=== PATIENT | female | born 1930 | race Caucasian/White ===

== ENCOUNTER 2018-02-26 20:53 | Observation (INO) ==
--- NOTE | 2018-02-26 21:28 | ED ---
HPI General Chief Complaint: Respiratory Symptoms Stated Complaint: Cough x2days Source: patient Mode of arrival: ambulatory Limitations: no limitations History of Present Illness The patient is a 87-year-old female who presents emergency department for shortness of breath. The patient notes a 2 day history of shortness of breath, progressing, worse with lying supine. The patient states her shortness of breath is also associated with a dry nonproductive cough. The patient denies any chest pain, nausea, vomiting, or abdominal pain. She denies any fever. The patient does have a remote history of tobacco use, COPD, and for previous episodes of pneumonia with similar symptoms. The patient also has a previous history of DVT that occurred approximately 3-4 years ago and was treated with warfarin for 6 months. The patient denies any acute swelling of the lower extremities and denies any history of congestive heart failure. Symptoms are moderate, there are currently no alleviating factors. MD Complaint: shortness of breath Onset (ago): day(s) Context: other (Lying supine exacerbates her symptoms) Severity: moderate Consistency/Duration: constant Relieving factors: nothing Exacerbating factors: lying flat Known history of: COPD and DVT Associated symptoms: cough and orthopnea Treatment prior to arrival: none Related Data Home oxygen amount: none Home Medications Medication Instructions Recorded Confirmed enalapril maleate 20 mg PO BID 01/28/18 02/26/18 folic acid 1 mg PO DAILY 01/28/18 02/26/18 methotrexate 10 mg/m2 PO QWEEK 01/28/18 02/03/18 lidocaine 1 patch TOPICAL DAILY PRN 02/26/18 02/26/18 Allergies Allergy/AdvReac Type Severity Reaction Status Date / Time penicillin G Allergy Severe HIVES Verified 01/28/18 21:11 aspirin AdvReac Severe Nausea/Vomi Verified 01/28/18 21:11 ting Review of Systems ROS: all other systems reviewed are negative Constitutional Denies fever(s) Cardiovascular Denies chest pain, Denies rapid heart rate, Denies pedal edema, Denies leg edema , Reports dyspnea, Denies dyspnea on exertion and Reports orthopnea Respiratory Reports cough and Reports dyspnea Gastrointestinal Denies abdominal pain, Denies nausea and Denies vomiting Musculoskeletal Reports arthralgias PMFSH Medical History Medical History Arthritis (Acute) COPD (chronic obstructive pulmonary disease) (Acute) DVT (deep venous thrombosis) (Acute) H/O: hysterectomy (Acute) HTN (hypertension) (Acute) Shingles (Acute) Surgical History Surgical History History of appendectomy (Acute) History of lumbar fusion (Acute) Social History Social History Substance History: No History of Abuse Second Hand Smoke Exposure: No Smoking Status: Former smoker Tobacco Type: Cigarettes How Often Do You Have a Drink Containing Alcohol: Never Recent Travel in [facility] within the Last 8 Weeks: No Exam Narrative Exam Narrative: GENERAL: Awake, alert, pleasant 87-year-old female appears her stated age and appears in mild respiratory distress. SKIN: Focused skin assessment warm/dry. Diminishing shingles rash noted over the left lateral abdomen. HEAD: Atraumatic. Normocephalic. EYES: No injection or drainage per ENT: No nasal bleeding or discharge. Mucous membranes pink and moist. NECK: Trachea midline. No JVD. CARDIOVASCULAR: Regular, tachycardic with a heart rate of 110. RESPIRATORY: Tachypnea, respiratory rate of 30. Diminished breath sounds left mid lung area with a few scattered crackles. GASTROINTESTINAL: Abdomen soft, non-tender, nondistended. No rebound tenderness. MUSCULOSKELETAL: No obvious deformities. No clubbing. No cyanosis. No edema. Negative Homans sign bilaterally. NEUROLOGICAL: Awake and alert. No obvious cranial nerve deficits. Motor grossly within normal limits. Normal speech. PSYCHIATRIC: Appropriate mood and affect; insight and judgment normal. Course Reevaluation(s) Reevaluation #1: The patient was reevaluated at 11:30 PM, still short of breath with a heart rate of 110 respiratory rate of 22 and O2 sat of 93%. Therefore, the patient will be 23 hour observation for COPD exacerbation. I discussed the patient with Dr. Brock who agrees a 23 hour observation. Time: 23:30 Consultations Consultation #1: The on-call medical service was paged for admission, I discussed the patient with Dr. Brock who agrees with 23 hour observation. Time: 23:42 Initial Documented Vital Signs Temperature 99.6 F 02/26/18 21:03 Pulse Rate 110 H 02/26/18 21:03 Respiratory Rate 20 02/26/18 21:03 Blood Pressure 172/88 H 02/26/18 21:03 Pulse Oximetry 97 02/26/18 21:03 Last Documented Vital Signs Temperature 99.6 F 02/26/18 21:03 Pulse Rate 106 H 02/26/18 22:02 Respiratory Rate 30 H 02/26/18 21:40 Blood Pressure 172/88 H 02/26/18 21:03 Pulse Oximetry 97 02/26/18 21:52 Medical Decision Making MDM Narrative Medical decision making narrative: IV was established, labs were drawn and sent , and the patient was placed on cardiac telemetry monitoring and continuous pulse oximetry monitoring. EKG was ordered and interpreted. Chest x-ray was obtained. The patient was administered 1 DuoNeb. BNP was sent to lab. Chest x -ray was unremarkable, therefore, CT pulmonary angiogram was ordered as patient does have history of pulmonary embolism and had a respiratory rate of 30 and pulse of 106. Troponin is unremarkable. BNP is negative. The patient was reassessed after steroids and duo nebs, still symptomatic, but respiratory rate improved to 22. Patient does not have a nebulizer at home, still symptomatic and still tachycardic with a heart rate of 110. Therefore, the patient will be a 23 hour observation to the on-call medical service. The patient and family are comfortable with this plan of care and disposition. Medical Screen Exam Complete: Yes Emergency Medical Condition: Yes Lab Data Lab results reviewed: Yes I reviewed the patient's lab results. Result diagrams: 02/26/18 21:45 02/26/18 21:45 Lab Results 02/26/18 02/26/18 02/26/18 Range/Units 21:45 21:45 21:45 CBC w Diff Auto diff final WBC 3.1 L (4.0-11.0) th/mm3 RBC 4.63 (4.00-5.30) mil/mm3 Hgb 14.1 (11.6-15.3) gm/dL Hct 42.2 (35.0-46.0) % MCV 91.3 (80.0-100.0) fL MCH 30.4 (27.0-34.0) pg MCHC 33.3 (32.0-36.0) % RDW 15.5 (11.6-17.2) % Plt Count 125 L (150-450) th/mm3 MPV 8.1 (7.0-11.0) fL Neut % (Auto) 38.6 (16.0-70.0) % Lymph % (Auto) 40.2 (9.0-44.0) % Pickens % (Auto) 19.5 H (0.0-8.0) % Eos % (Auto) 1.0 (0.0-4.0) % Baso % (Auto) 0.7 (0.0-2.0) % Neut # (Auto) 1.2 L (1.8-7.7) th/mm3 Lymph # (Auto) 1.3 (1.0-4.8) th/mm3 Pickens # (Auto) 0.6 (0.0-0.9) th/mm3 Eos # (Auto) 0.0 (0.0-0.4) th/mm3 Baso # (Auto) 0.0 (0.0-0.2) th/mm3 WBC Differential . Differential Comment . PT 11.0 (9.8-11.6) sec INR 1.1 Ratio APTT 25.1 (24.3-30.1) sec Sodium 134 L (136-145) meq/L Potassium 4.4 (3.5-5.1) meq/L Chloride 100 (98-107) meq/L Carbon Dioxide 28.0 (21.0-32.0) meq/L Anion Gap 6 (5-15) meq/L BUN 13 (7-18) mg/dL Creatinine 0.99 (0.50-1.00) mg/dL Estimated GFR 53 L (>89) mL/min Random Glucose 112 H (74-106) mg/dL Calcium 8.8 (8.5-10.1) mg/dL Magnesium 2.1 (1.5-2.5) mg/dL Total Bilirubin 1.1 H (0.2-1.0) mg/dL AST 30 (15-37) U/L ALT 24 (10-53) U/L Alkaline Phosphatase 70 (45-117) U/L Troponin I Less than 0.02 L (0.02-0.05) ng/mL B-Natriuretic Peptide (0-100) pg/mL Total Protein 7.8 (6.4-8.2) g/dL Albumin 3.4 (3.4-5.0) g/dL Urine Color (Yellw/Straw) Urine Clarity (Clear) Urine pH (5.0-8.5) Ur Specific Franklin (1.002-1.035) Urine Protein (Neg-Trace) mg/dL Urine Glucose (UA) (Negative) mg/dL Urine Ketones (Negative) mg/dL Urine Occult Blood (Negative) Urine Nitrate (Negative) Urine Bilirubin (Negative) Urine Urobilinogen (Less than 2) mg/dL Ur Leukocyte Esterase (Negative) Urine RBC (0-3) /hpf Urine WBC (0-5) /hpf Ur Squamous Epith Cells (0-5) /hpf Micro UA Comment Urine Culture Comments 02/26/18 02/26/18 Range/Units 21:45 22:59 CBC w Diff WBC (4.0-11.0) th/mm3 RBC (4.00-5.30) mil/mm3 Hgb (11.6-15.3) gm/dL Hct (35.0-46.0) % MCV (80.0-100.0) fL MCH (27.0-34.0) pg MCHC (32.0-36.0) % RDW (11.6-17.2) % Plt Count (150-450) th/mm3 MPV (7.0-11.0) fL Neut % (Auto) (16.0-70.0) % Lymph % (Auto) (9.0-44.0) % Pickens % (Auto) (0.0-8.0) % Eos % (Auto) (0.0-4.0) % Baso % (Auto) (0.0-2.0) % Neut # (Auto) (1.8-7.7) th/mm3 Lymph # (Auto) (1.0-4.8) th/mm3 Pickens # (Auto) (0.0-0.9) th/mm3 Eos # (Auto) (0.0-0.4) th/mm3 Baso # (Auto) (0.0-0.2) th/mm3 WBC Differential Differential Comment PT (9.8-11.6) sec INR Ratio APTT (24.3-30.1) sec Sodium (136-145) meq/L Potassium (3.5-5.1) meq/L Chloride (98-107) meq/L Carbon Dioxide (21.0-32.0) meq/L Anion Gap (5-15) meq/L BUN (7-18) mg/dL Creatinine (0.50-1.00) mg/dL Estimated GFR (>89) mL/min Random Glucose (74-106) mg/dL Calcium (8.5-10.1) mg/dL Magnesium (1.5-2.5) mg/dL Total Bilirubin (0.2-1.0) mg/dL AST (15-37) U/L ALT (10-53) U/L Alkaline Phosphatase (45-117) U/L Troponin I (0.02-0.05) ng/mL B-Natriuretic Peptide 81 (0-100) pg/mL Total Protein (6.4-8.2) g/dL Albumin (3.4-5.0) g/dL Urine Color Yellow (Yellw/Straw) Urine Clarity Slightly cloudy (Clear) Urine pH 7.0 (5.0-8.5) Ur Specific Franklin 1.020 (1.002-1.035) Urine Protein 30 H (Neg-Trace) mg/dL Urine Glucose (UA) Negative (Negative) mg/dL Urine Ketones Negative (Negative) mg/dL Urine Occult Blood Large H (Negative) Urine Nitrate Negative (Negative) Urine Bilirubin Negative (Negative) Urine Urobilinogen 0.2 (Less than 2) mg/dL Ur Leukocyte Esterase Negative (Negative) Urine RBC 15-50 H (0-3) /hpf Urine WBC 0-5 (0-5) /hpf Ur Squamous Epith Cells 0-5 (0-5) /hpf Micro UA Comment Culture not ind Urine Culture Comments Culture not ind Imaging Data Attestation: I personally reviewed and interpreted this imaging study as follows : My impression: Chest x-ray is unremarkable. Radiologist's impression: Chest X-Ray 02/26/18 21:20 CONCLUSION: No acute cardiopulmonary disease. There is no evidence of pneumonia. Chest CTA 02/26/18 21:42 CONCLUSION: 1. No evidence for pulmonary embolism. 2. Scattered groundglass nodules. Follow-up CT chest in 3 months recommended for stability. 3. Coronary artery calcifications. ECG Data EKG Prior to Arrival: No Attestation: I personally reviewed and interpreted this ECG as follows: Interpretation: EKG reveals sinus tachycardia with a heart rate of 102. Q-wave noted in lead II, III, and aVF. QTc 397 ms. Discharge Plan Discharge Disposition Patient Disposition: 30 Still Patient Discharge Condition Condition: Stable Discharge Details Diagnosis: COPD exacerbation, Acute dyspnea Physicians Team ED Provider: Abdon Chapa Primary Care Provider: Leila Ferrer Rxs /Orders / Referrals /Forms Prescriptions: No Action enalapril maleate 20 mg Tablet 20 mg PO BID RF: 0 folic acid 1 mg Tablet 1 mg PO DAILY RF: 0 methotrexate 2.5 mg/mL Solution 10 mg/m2 PO QWEEK RF: 0 lidocaine 5 % adhesive patch,medicated 1 patch TOPICAL DAILY PRN (Reason: Pain) RF: 0 Status ED Status: Pending Admission
--- NOTE | 2018-02-26 21:43 | XR ---
EXAM DATE: 02/26/2018 9:38 PM EDT AGE/SEX: 87 years / Female INDICATIONS: Cough. CLINICAL DATA: This is the patient's initial encounter. Patient reports that signs and symptoms have been present for 1 day and indicates a pain score of 0/10. MEDICAL/SURGICAL HISTORY: Non-responsive. Non-responsive. COMPARISON: [facility], CHEST SINGLE AP, 11/29/2011. . FINDINGS: A single AP view of the chest demonstrates the lungs to be symmetrically aerated without evidence of mass, infiltrate or effusion. The cardiomediastinal contours are unremarkable. Osseous structures a re intact. Atherosclerotic calcifications are again noted in the aorta. CONCLUSION: No acute cardiopulmonary disease. There is no evidence of pneumonia. Electronically signed by: Rj Nugent MD 02/26/2018 9:42 PM EDT
[2018-02-26 22:10] LABS: Baso % (Auto) 0.7 % (0.0-2.0); Hematocrit 42.2 % (35.0-46.0); Hemoglobin 14.1 gm/dL (11.6-15.3); Lymph # (Auto) 1.3 th/mm3 (1.0-4.8); Lymph % (Auto) 40.2 % (9.0-44.0); Mean Corpuscular HGB Conc 33.3 % (32.0-36.0); Mean Corpuscular Hemoglobin 30.4 pg (27.0-34.0); Mean Corpuscular Volume 91.3 fL (80.0-100.0); Mean Platelet Volume 8.1 fL (7.0-11.0); Mono # (Auto) 0.6 th/mm3 (0.0-0.9); Mono % (Auto) 19.5 % (0.0-8.0); Neut # (Auto) 1.2 th/mm3 (1.8-7.7); Neut % (Auto) 38.6 % (16.0-70.0); Platelet Count 125 th/mm3 (150-450); Red Blood Count 4.63 mil/mm3 (4.00-5.30); Red Cell Distribution Width 15.5 % (11.6-17.2); White Blood Count 3.1 th/mm3 (4.0-11.0)
--- NOTE | 2018-02-26 22:12 | ECG ---
Date Performed: 02/26/2018 Time Performed: 21:28:52 PTAGE: 87 years EKG: SINUS TACHYCARDIA INFERIOR MYOCARDIAL INFARCTION ABNORMAL ECG PREVIOUS TRACING : 02/03/2018 08.25 No significant change from previous tracing noted. DOCTOR: Garth Solis Interpretating Date/Time 02/26/2018 22:10:49
[2018-02-26 22:13] LABS: Chloride 100 meq/L (98-107); Potassium 4.4 meq/L (3.5-5.1); Sodium 134 meq/L (136-145)
[2018-02-26 22:17] LABS: Calcium 8.8 mg/dL (8.5-10.1)
[2018-02-26 22:18] LABS: Albumin 3.4 g/dL (3.4-5.0); Anion Gap 6 meq/L (5-15); Blood Urea Nitrogen 13 mg/dL (7-18); Glucose,Random 112 mg/dL (74-106); Magnesium 2.1 mg/dL (1.5-2.5)
[2018-02-26 22:21] LABS: Alanine Aminotransferase 24 U/L (10-53); Aspartate Aminotransferase 30 U/L (15-37); Glomerular Filtration Rate 53 mL/min (>89)
[2018-02-26 22:22] LABS: Total Protein 7.8 g/dL (6.4-8.2)
[2018-02-26 22:24] LABS: Alkaline Phosphatase 70 U/L (45-117)
[2018-02-26 22:28] LABS: Activated Partial Thrombo Time 25.1 sec (24.3-30.1); INR 1.1 Ratio
[2018-02-26 23:02] LABS: Bilirubin,Urine Negative (Negative); Clarity,Urine Slightly Cloudy (Clear); Color,Urine Yellow (Yellw/Straw); Glucose,Urine (UA) Negative (Negative); Leukocyte Esterase,Urine Negative (Negative); Nitrite,Urine Negative (Negative); Urobilinogen,Urine 0.2 mg/dL (Less than 2)
[2018-02-26 23:15] LABS: Squamous Epithelial Cell,Urine 0-5 /hpf (0-5); WBC,Urine 0-5 /hpf (0-5)
--- NOTE | 2018-02-26 23:34 | CT ---
EXAM DATE: 02/26/2018 11:20 PM EDT AGE/SEX: 87 years / Female INDICATIONS: Shortness of breath past 2 days. CLINICAL DATA: This is the patient's initial encounter. Patient reports that signs and symptoms have been present for 2 days and indicates a pain score of 0/10. MEDICAL/SURGICAL HISTORY: Chronic obstructive pulmonary disease. Deep venous thrombosis. None. RADIATION DOSE: 16.05 CTDI (mGy) COMPARISON: No prior exams available for comparison. TECHNIQUE: Volumetric scanning was performed using a multi-row detector CT scanner during bolus infu lizette of 70 ml Omnipaque 350 (iohexol) nonionic water-soluble contrast as a single exam dose. The chelsi a was post processed with a variety of visualization algorithms including full volume maximum intensi ty projection and sliding thin slab reformation. Using automated exposure control and adjustment of t he mA and/or kV according to patient size, radiation dose was kept as low as reasonably achievable to obtain optimal diagnostic quality images. DICOM format image data is available electronically for r eview and comparison. FINDINGS: Pulmonary Arteries: No filling defects are seen in the pulmonary arteries out to the subsegmental ve ssels. The left and right pulmonary arteries are normal in diameter. Lung: No infiltrates seen. 1 cm groundglass nodule right upper lobe laterally. Similar groundglass n odule seen within the superior segment right lower lobe. Several other groundglass nodules are seen w ithin the right upper lobe and lingula. 4 mm nodule in the lingula. There is mild emphysema Effusion: None. Mediastinum: No evidence of mediastinal or hilar adenopathy. Coronary artery calcifications. Other: The axilla is unremarkable. CONCLUSION: 1. No evidence for pulmonary embolism. 2. Scattered groundglass nodules. Follow-up CT chest in 3 months recommended for stability. 3. Coronary artery calcifications. Electronically signed by: Lionel Klein MD 02/26/2018 11:33 PM EDT
[2018-02-26] MEDS ORDERED: MethylPREDNISolone Sod Succinate Inj 125 MG/2 ML Vial IV.PUSH ONE (23:36)
[2018-02-26] MEDS ORDERED: Azithromycin Inj 500 MG in Sodium Chlor 0.9% Inj 250 ML IV.SIG ONE (23:41)
[2018-02-27] MEDS ORDERED: Morphine Inj 4 MG/ML Vial IV.PUSH PRN ×2 (00:02)
[2018-02-27] MEDS: Sod Chloride 0.9% Inj 1,000 ML IV.CONT SCH ×2 (00:26→16:31)
[2018-02-27] MEDS: predniSONE 20 MG Tablet PO SCH (08:31)
--- NOTE | 2018-02-27 11:12 | P.HP ---
History of Present Illness Primary Care Physician: Leila Ferrer MD History of Present Illness: 87-year-old female with a history of COPD, DVT and recent shingles presents to the ER with cough and shortness of breath. She has a 60 year smoking history but quit 9 years ago following for bouts of pneumonia. Since then she denies having any pneumonia or admissions for COPD exacerbation. For the last weeks she has been having a cough with malaise, poor appetite and worsening shortness of breath. She states she is otherwise in good health and has managed to avoid the hospital over the past few years. Currently she feels weak, not at her baseline, not eating well enough to feel comfortable at home. Review of Systems Constitutional: Denies chills, Denies fevers, Denies daytime sleepiness,Denies fatigue, Denies weakness, Denies headache, Denies malaise, Denies night sweats , Denies anorexia, Denies increased appetite Denies weight gain, Denies weight loss Eyes: Denies visual changes, Denies visual loss, Denies double vision, Denies blind spots, Denies blurry vision, Denies discharge, Denies dry eyes, Denies floaters, Denies irritation, Denies itchy eyes, Denies pain, Denies photophobia , Denies bulging eyes Ears, Nose, Mouth, and Throat: Denies bleeding gums, Denies change in voice, Denies difficulty swallowing, Denies abnormal hearing, Denies ear discharge, Denies ear pain, Denies tinitus, Denies vertigo, Denies facial pain, Denies hoarseness, Denies lip swelling, Denies mouth lesions, Denies nasal congestion, Denies nasal discharge, Denies nasal obstruction, Denies neck lump, Denies neck pain, Denies nose pain, Denies nosebleed, Denies post nasal drip, Denies sinus pain, Denies sinus pressure, Denies sore throat, Denies throat swelling, Denies tongue swelling Cardiovascular: Denies chest pain, Denies fainting, Denies fast heart rate, Denies foot swelling, Denies generalized swelling, Denies irregular heart rhythm , Denies leg sores, Denies leg swelling, Denies shortness of breath when lying down, Denies shortness of breath causing sudden awakening, Denies slow heart rate Respiratory: Cough with congestion developing over 1 week, Denies coughing up blood, Denies pain on inspiration, Denies pain with cough, Denies snoring, Denies stridor, Gastrointestinal: Denies abdominal pain, Denies bleeding, Denies stool color changes, Denies bloating, Denies change in bowel habits, Denies coffee ground vomit, Denies constipation, Denies feeling full early, Denies heartburn, Denies loose stools, Denies nausea, Denies vomiting, Denies pain with swallowing Skin/Breast: Denies bleeding lesions, Denies boil, Denies change in skin color, Denies changing lesions, Denies itching, Denies redness, Denies rash,Denies skin ulcer, Denies sores, Neurologic: Denies abnormal speech, Denies abnormal walking, Denies dizziness, Denies fainting, Denies frequent falls, Denies lack of coordination, Denies localized weakness, Denies loss of vision, Denies memory loss, Denies numbness, Denies convulsions, Denies tingling/numbness/burning sensations, Denies tremor Psychiatric: Denies anxiety, Denies behavioral changes, Denies depression, Denies memory loss, Denies hallucinations, Denies thoughts of hurting/killing others, Denies thoughts of hurting/killing self Endocrine: Denies cold intolerance, Denies excessive sweating, Denies flushing, Denies heat intolerance, Denies increased thirst, Denies weight gain or loss Hematologic/Lymphatic: Denies easy bleeding, Denies easy bruising, Denies enlarged lymph node Allergic/Immunologic: Denies GI upset with certain foods, Denies hives, Denies seasonal runny nose PMFSH - History History Provided By: Patient - Medical History Medical History: Medical History (Last Updated 02/26/18 @ 22:06 by Cathy Ponce RN) Arthritis COPD (chronic obstructive pulmonary disease) DVT (deep venous thrombosis) H/O: hysterectomy HTN (hypertension) Shingles - Surgical History Surgical History: Surgical History (Last Updated 02/26/18 @ 22:06 by Cathy Ponce RN) History of appendectomy History of lumbar fusion - Family History Family History: Family History (Last Updated 02/27/18 @ 11:01 by Jh Brock MD) Other Coronary artery disease - Tobacco History Second Hand Smoke Exposure: No Tobacco Use In Past 30 Days: No Smoking Status: Former smoker Tobacco Type: Cigarettes - Alcohol History How Often Do You Have a Drink Containing Alcohol: Never - Substance Use History Substance History: No History of Abuse - Travel History Recent Travel in the [place] Within the Last 8 Weeks: No Recent Travel Out of the Country Within the Last 8 Weeks: No - Immunization History Tetanus Immunization: Unsure Medications and Allergies Active Medications: Active Medications Al Hydroxide/Mg Hydroxide (Milk Of Magnbryson Liq) 30 ml PO Q12H PRN PRN Reason: Mild Constipation Albuterol (Duoneb Neb (Rufino)) 1 ampul NEB Q6HR WHILE AWAKE NEB [facility] Last Admin: 02/27/18 07:12 Dose: 1 ampul Albuterol (Albuterol Neb (Prn)) 2.5 mg NEB Q2HR NEB PRN PRN Reason: SHORTNESS OF BREATH Sodium Chloride (Ns Inj) 1,000 mls @ 75 mls/hr IV.CONT .[id number] [facility] Last Admin: 02/27/18 00:26 Dose: 75 mls/hr Azithromycin 500 mg/ Sodium (Chloride) 250 mls @ 250 mls/hr IV.SIG Q24H [facility] Morphine Sulfate (Morphine Inj) 2 mg IV.PUSH Q4H PRN PRN Reason: Pain 3 to 6 Morphine Sulfate (Morphine Inj) 4 mg IV.PUSH Q4H PRN PRN Reason: Pain 7 to 10 Ondansetron HCl (Zofran Inj) 4 mg IV.PUSH Q6H PRN PRN Reason: NAUSEA OR VOMITING Prednisone (Deltasone) 40 mg PO DAILY [facility] Last Admin: 02/27/18 08:31 Dose: 40 mg Sodium Chloride (Ns Flush) 2 ml IV.FLUSH PRN PRN PRN Reason: FLUSH AFTER USING IV ACCESS Last Admin: 02/27/18 00:27 Dose: 2 ml Sodium Chloride (Ns Flush) 2 ml IV.FLUSH BID [facility] Allergies Allergy/AdvReac Type Severity Reaction Status Date / Time penicillin G Allergy Severe HIVES Verified 01/28/18 21:11 aspirin AdvReac Severe Nausea/Vomi Verified 01/28/18 21:11 ting Home Medications Medication Instructions Recorded Confirmed Type enalapril maleate 20 mg PO BID 01/28/18 02/26/18 History folic acid 1 mg PO DAILY 01/28/18 02/26/18 History methotrexate 10 mg/m2 PO QWEEK 01/28/18 02/03/18 History lidocaine 1 patch TOPICAL DAILY PRN 02/26/18 02/26/18 History Exam Vital signs: Vital Signs 02/26/18 21:03 02/26/18 21:40 02/26/18 21:52 Temperature 99.6 F Pulse Rate 110 H 108 H Respiratory Rate 20 30 H Blood Pressure 172/88 H Pulse Oximetry 97 98 97 02/26/18 22:02 02/27/18 00:46 02/27/18 01:17 Temperature 98.8 F Pulse Rate 106 H 106 H 100 H Respiratory Rate 18 16 Blood Pressure 152/80 H 145/69 H Pulse Oximetry 100 96 02/27/18 01:36 02/27/18 04:00 02/27/18 07:15 Temperature 97.6 F Pulse Rate 100 H 93 H 99 H Respiratory Rate 16 20 Blood Pressure 132/71 Pulse Oximetry 96 93 L 98 02/27/18 08:00 Temperature 98.1 F Pulse Rate 108 H Respiratory Rate 20 Blood Pressure 141/71 H Pulse Oximetry 95 Intake & Output 02/26/18 02/27/18 02/27/18 18:59 06:59 18:59 Intake Total 450 / 450 Balance 450 / 450 Weight 64.4 kg Intake: IV 250 / 250 Azithromycin Inj 500 MG In NS 250 / 250 Inj 250 ML @ 250 mls/hr IV.SIG ONCE ONE Rx#:[id number] Oral 200 / 200 Other: # Voids 2 Date of Last Bowel Movement 02/26/18 Weight On Admission 64.4 kg Narrative: GENERAL: AAOx3, no acute distress, adequate nutrition SKIN: Warm and dry, no rashes. HEAD: Atraumatic. Normocephalic. EYES: Pupils equal, round, reactive to light. No scleral icterus. No injection or drainage. ENT: No nasal bleeding or discharge. Moist mucous membranes. Nonerythematous oropharynx. NECK: Trachea midline. No JVD. Thyroid size within normal limits. CARDIOVASCULAR: Borderline tachycardia. No murmur, no gallops, no rubs. RESPIRATORY: Scattered wheezes with atelectatic sounds in bilateral bases. No accessory muscle use. GASTROINTESTINAL: Abdomen soft, non-tender, nondistended, normal active bowel sounds. Hepatic and splenic margins not palpable. MUSCULOSKELETAL: Extremities without clubbing or cyanosis. No obvious deformities. No edema. NEUROLOGICAL: Awake and alert. No obvious cranial nerve deficits. Motor grossly within normal limits. No focal deficits. Five out of 5 muscle strength in the arms and legs. Normal speech. PSYCHIATRIC: Appropriate mood and affect; insight and judgment normal. Results - Labs CBC & Chem 7: 02/26/18 21:45 02/26/18 21:45 Labs: Laboratory Results - last 24 hr 02/26/18 02/26/18 02/26/18 21:45 21:45 21:45 CBC w Diff Auto diff final WBC 3.1 L RBC 4.63 Hgb 14.1 Hct 42.2 MCV 91.3 MCH 30.4 MCHC 33.3 RDW 15.5 Plt Count 125 L MPV 8.1 Neut % (Auto) 38.6 Lymph % (Auto) 40.2 [place] % (Auto) 19.5 H Eos % (Auto) 1.0 Baso % (Auto) 0.7 Neut # (Auto) 1.2 L Lymph # (Auto) 1.3 [place] # (Auto) 0.6 Eos # (Auto) 0.0 Baso # (Auto) 0.0 WBC Differential . Differential Comment . PT 11.0 INR 1.1 APTT 25.1 Sodium 134 L Potassium 4.4 Chloride 100 Carbon Dioxide 28.0 Anion Gap 6 BUN 13 Creatinine 0.99 Estimated GFR 53 L Random Glucose 112 H Lactic Acid Calcium 8.8 Magnesium 2.1 Total Bilirubin 1.1 H AST 30 ALT 24 Alkaline Phosphatase 70 Troponin I Less than 0.02 L B-Natriuretic Peptide Total Protein 7.8 Albumin 3.4 Urine Color Urine Clarity Urine pH Ur Specific [place] Urine Protein Urine Glucose (UA) Urine Ketones Urine Occult Blood Urine Nitrate Urine Bilirubin Urine Urobilinogen Ur Leukocyte Esterase Urine RBC Urine WBC Ur Squamous Epith Cells Micro UA Comment Urine Culture Comments 02/26/18 02/26/18 02/27/18 21:45 22:59 00:30 CBC w Diff WBC RBC Hgb Hct MCV MCH MCHC RDW Plt Count MPV Neut % (Auto) Lymph % (Auto) [place] % (Auto) Eos % (Auto) Baso % (Auto) Neut # (Auto) Lymph # (Auto) [place] # (Auto) Eos # (Auto) Baso # (Auto) WBC Differential Differential Comment PT INR APTT Sodium Potassium Chloride Carbon Dioxide Anion Gap BUN Creatinine Estimated GFR Random Glucose Lactic Acid 1.3 Calcium Magnesium Total Bilirubin AST ALT Alkaline Phosphatase Troponin I B-Natriuretic Peptide 81 Total Protein Albumin Urine Color Yellow Urine Clarity Slightly cloudy Urine pH 7.0 Ur Specific Lee 1.020 Urine Protein 30 H Urine Glucose (UA) Negative Urine Ketones Negative Urine Occult Blood Large H Urine Nitrate Negative Urine Bilirubin Negative Urine Urobilinogen 0.2 Ur Leukocyte Esterase Negative Urine RBC 15-50 H Urine WBC 0-5 Ur Squamous Epith Cells 0-5 Micro UA Comment Culture not ind Urine Culture Comments Culture not ind - Imaging Impressions Chest X-Ray 02/26/18 21:20 CONCLUSION: No acute cardiopulmonary disease. There is no evidence of pneumonia. Chest CTA 02/26/18 21:42 CONCLUSION: 1. No evidence for pulmonary embolism. 2. Scattered groundglass nodules. Follow-up CT chest in 3 months recommended for stability. 3. Coronary artery calcifications. Caprini VTE Risk Assessment Caprini VTE Risk Assessment: Moderate/High Risk (score >= 2) Caprini Risk Assessment Model: Point Value = 1 Point Value = 2 Point Value = 3 Point Value = 5 Age 41-60 Minor surgery BMI > 25 kg/m2 Swollen legs Varicose veins or History of unexplained or recurrent spontaneous Oral contraceptives or hormone replacement Sepsis (< 1 month) Serious lung disease, including pneumonia (< 1 month) Abnormal pulmonary function Acute myocardial infarction Congestive heart failure (< 1 month) History of inflammatory bowel disease Medical patient at bed rest Age 61-74 Arthroscopic surgery Major open surgery (> 45 min) Laparoscopic surgery (> 45 min) Malignancy Confined to bed (> 72 hours) Immobilizing plaster cast Central venous access Age >= 75 History of VTE Family history of VTE Factor V Leiden Prothrombin [id number] Lupus anticoagulant Anticardiolipin antibodies Elevated serum homocysteine Heparin-induced thrombocytopenia Other congenital or acquired thrombophilia Stroke (< 1 month) Elective arthroplasty Hip, pelvis, or leg fracture Acute spinal cord injury (< 1 month) Prophylaxis Regimen: Total Risk Factor Score Risk Level Prophylaxis Regimen 0-1 Low Early ambulation 2 Moderate Order ONE of the following: *Sequential Compression Device (SCD) *Heparin 5000 units SQ BID 3-4 Higher Order ONE of the following medications: *Heparin 5000 units SQ TID *Enoxaparin/Lovenox 40 mg SQ daily (WT < 150 kg, CrCl > 30 mL/min) *Enoxaparin/Lovenox 30 mg SQ daily (WT < 150 kg, CrCl > 10-29 mL/min) *Enoxaparin/Lovenox 30 mg SQ BID (WT < 150 kg, CrCl > 30 mL/min) AND/OR *Sequential Compression Device (SCD) 5 or more Highest Order ONE of the following medications: *Heparin 5000 units SQ TID (Preferred with Epidurals) *Enoxaparin/Lovenox 40 mg SQ daily (WT < 150 kg, CrCl > 30 mL/min) *Enoxaparin/Lovenox 30 mg SQ daily (WT < 150 kg, CrCl > 10-29 mL/min) *Enoxaparin/Lovenox 30 mg SQ BID (WT < 150 kg, CrCl > 30 mL/min) AND *Sequential Compression Device (SCD) Assessment and Plan - Plan COPD exacerbation Moderate exacerbation, patient not oxygen dependent but with scattered wheezes and weakness/shortness of breath Continue Solu-Medrol, continue duo nebs, add budesonide nebs Oxygen walk test tomorrow Cough Chest x-ray is within normal limits, consider upper respiratory Continue azithromycin Shingles 3 weeks out still with pain Add low dose of Neurontin nightly Essential tremor Patient requested to try medicine to help this, will look into metoprolol DVT prophylaxis Lovenox
[2018-02-27] MEDS: Enoxaparin Inj 40 MG/0.4 ML Syringe SQ SCH (16:28)
[2018-02-27] MEDS: Metoprolol Tartrate 25 MG Tablet PO SCH ×2 (16:28→22:30)
[2018-02-27] MEDS ORDERED: Gabapentin 300 MG Capsule PO SCH (21:00)
[2018-02-28] MEDS ORDERED: Azithromycin Inj 500 MG in Sodium Chlor 0.9% Inj 250 ML IV.SIG SCH ×2
[2018-02-28] MEDS: Sod Chloride 0.9% Inj 1,000 ML IV.CONT SCH (03:48)
[2018-02-28 06:53] LABS: Baso % (Auto) 0.2 % (0.0-2.0); Eos % (Auto) 0.1 % (0.0-4.0); Hematocrit 37.3 % (35.0-46.0); Hemoglobin 12.1 gm/dL (11.6-15.3); Lymph # (Auto) 1.1 th/mm3 (1.0-4.8); Lymph % (Auto) 24.1 % (9.0-44.0); Mean Corpuscular HGB Conc 32.4 % (32.0-36.0); Mean Corpuscular Hemoglobin 29.8 pg (27.0-34.0); Mean Corpuscular Volume 92.1 fL (80.0-100.0); Mean Platelet Volume 8.6 fL (7.0-11.0); Mono # (Auto) 0.6 th/mm3 (0.0-0.9); Mono % (Auto) 14.4 % (0.0-8.0); Neut # (Auto) 2.8 th/mm3 (1.8-7.7); Neut % (Auto) 61.2 % (16.0-70.0); Platelet Count 145 th/mm3 (150-450); Red Blood Count 4.05 mil/mm3 (4.00-5.30); Red Cell Distribution Width 15.6 % (11.6-17.2); White Blood Count 4.5 th/mm3 (4.0-11.0)
[2018-02-28 06:58] LABS: Chloride 107 meq/L (98-107); Potassium 4.1 meq/L (3.5-5.1); Sodium 139 meq/L (136-145)
[2018-02-28 07:02] LABS: Calcium 8.3 mg/dL (8.5-10.1)
[2018-02-28 07:12] LABS: Alanine Aminotransferase 18 U/L (10-53); Albumin 2.6 g/dL (3.4-5.0); Alkaline Phosphatase 57 U/L (45-117); Anion Gap 4 meq/L (5-15); Aspartate Aminotransferase 20 U/L (15-37); Blood Urea Nitrogen 20 mg/dL (7-18); Carbon Dioxide 27.6 meq/L (21.0-32.0); Glomerular Filtration Rate 70 mL/min (>89); Glucose,Random 105 mg/dL (74-106); Total Protein 6.1 g/dL (6.4-8.2)
[2018-02-28] MEDS: Metoprolol Tartrate 25 MG Tablet PO SCH (08:49)
[2018-02-28] MEDS: predniSONE 20 MG Tablet PO SCH ×2 (08:49→08:50)
[2018-02-28] MEDS: Enoxaparin Inj 40 MG/0.4 ML Syringe SQ SCH (08:49)
[2018-02-28] MEDS ORDERED: Azithromycin 250 MG Tablet PO SCH (09:00)
--- NOTE | 2018-02-28 11:18 | P.DS ---
Date of admission: 02/27/18 00:00 Primary care physician: Leila Ferrer MD Brief History from admission: 87-year-old female with a history of COPD, DVT and recent shingles presents to the ER with cough and shortness of breath. She has a 60 year smoking history but quit 9 years ago following for bouts of pneumonia. Since then she denies having any pneumonia or admissions for COPD exacerbation. For the last weeks she has been having a cough with malaise, poor appetite and worsening shortness of breath. She states she is otherwise in good health and has managed to avoid the hospital over the past few years. Currently she feels weak, not at her baseline, not eating well enough to feel comfortable at home. DS: Medications - Discharge Medications Prescriptions: albuterol sulfate [Proventil HFA] 2 puff INHALATION Q6H PRN 30 Days #1 inh PRN Reason: Wheezing azithromycin 250 mg PO DAILY 4 Days #4 tab gabapentin [Neurontin] 300 mg PO HS 30 Days #30 cap methylprednisolone [Medrol (Richard)] 4 mg PO PER PKG DIR 7 Days #1 pack metoprolol tartrate 12.5 mg PO BID #60 tab DS: Summary Hospital Course: 87-year-old female with history of COPD presented with COPD exacerbation and shortness of breath. She responded favorably to standard treatment with azithromycin, 2 nebs, steroids. Today she is ambulating the hallways without oxygen and stable for discharge home. - Time Spent with Patient Total time spent providing and/or coordinating discharge services: Less than 30 minutes - Quality: VTE Deep Vein Thrombosis/Pulmonary Embolism Present on Admission: No Exam Vital signs: Vital Signs 02/27/18 12:00 02/27/18 16:00 02/27/18 20:00 Temperature 96.4 F L 96.2 F L 96.5 F L Pulse Rate 104 H 117 H 90 Respiratory Rate 20 20 20 Blood Pressure 140/67 160/72 H 114/71 Pulse Oximetry 95 96 98 Pulse Oximetry [Exertion on Room Air] Pulse Oximetry [Resting on Room Air] 02/27/18 20:44 02/28/18 00:00 02/28/18 08:04 Temperature 97.2 F L Pulse Rate 85 86 66 Respiratory Rate 20 20 20 Blood Pressure 151/87 H Pulse Oximetry 98 98 Pulse Oximetry [Exertion on Room Air] Pulse Oximetry [Resting on Room Air] 02/28/18 08:06 02/28/18 08:30 02/28/18 08:47 Temperature 98.1 F Pulse Rate 95 H Respiratory Rate 16 Blood Pressure 130/74 Pulse Oximetry 98 98 Pulse Oximetry [Exertion on Room Air] 98 Pulse Oximetry [Resting on Room Air] 97 Intake & Output 02/27/18 02/28/18 02/28/18 18:59 06:59 18:59 Intake Total 1821 / 1821 90 / 90 1000 / 1000 Balance 1821 / 1821 90 / 90 1000 / 1000 Weight 64.1 kg Intake: IV 1000 / 1000 1000 / 1000 NS Inj 1,000 ML @ 75 mls/hr IV. 1000 / 1000 1000 / 1000 CONT .[id number] JAY Rx#: [id number] Oral 821 / 821 90 / Other: # Voids 3 2 Date of Last Bowel Movement 02/27/18 Results Procedures completed during hospitalization: none Labs on day of discharge: Labs from last 24 hours 02/28/18 02/28/18 05:00 05:00 CBC w Diff Auto diff final WBC 4.5 RBC 4.05 Hgb 12.1 D Hct 37.3 MCV 92.1 MCH 29.8 MCHC 32.4 RDW 15.6 Plt Count 145 L MPV 8.6 Neut % (Auto) 61.2 Lymph % (Auto) 24.1 [place] % (Auto) 14.4 H Eos % (Auto) 0.1 Baso % (Auto) 0.2 Neut # (Auto) 2.8 Lymph # (Auto) 1.1 [place] # (Auto) 0.6 Eos # (Auto) 0.0 Baso # (Auto) 0.0 WBC Differential . Differential Comment . Sodium 139 Potassium 4.1 Chloride 107 Carbon Dioxide 27.6 Anion Gap 4 L BUN 20 H Creatinine 0.78 Estimated GFR 70 L Random Glucose 105 Calcium 8.3 L Total Bilirubin 0.3 AST 20 ALT 18 Alkaline Phosphatase 57 Total Protein 6.1 L D Albumin 2.6 L D Preliminary micro results at discharge 02/27/18 00:00 Aerobic Blood Culture - Preliminary Blood - Peripheral No growth in 1 day Anaerobic Blood Culture - Preliminary No growth in 1 day 02/27/18 00:30 Aerobic Blood Culture - Preliminary Blood - Peripheral No growth in 1 day Anaerobic Blood Culture - Preliminary No growth in 1 day - Impressions ITS Impressions Chest X-Ray 02/26/18 21:20 CONCLUSION: No acute cardiopulmonary disease. There is no evidence of pneumonia. Chest CTA 02/26/18 21:42 CONCLUSION: 1. No evidence for pulmonary embolism. 2. Scattered groundglass nodules. Follow-up CT chest in 3 months recommended for stability. 3. Coronary artery calcifications. Discharge Plan - Discharge Disposition Patient Disposition: /Home Health Service - Discharge Condition Condition: Stable - Discharge Order Discharge Orders: Discharge Order (Routine); Ordered 02/28/18 Ordered By: Jh Brock - Physicians Team Primary Care Provider: Leila Ferrer Attending Provider: Jh Brock
--- NOTE | 2018-02-28 11:19 | P.DCO ---
- Physical Therapy Order: Evaluate and treat - Home Health Nursing Order: Medical education, Signs/symptoms of disease process, Nursing assessment with vital signs - Certification I have seen patient Liya Gaines on 02/28/18. My clinical findings support the need for the requested home health care services because: Limited mobility due to disease progression, Patient has SOB, Deconditioned with increased weakness I certify that my clinical findings support that this patient is homebound because: Hx COPD - exertion dyspnea/weakness, Unsteady gait/balance, Unsafe to leave home unassisted
== END 2018-02-28 11:48 | disposition home health service (06) ==
LOC: PH3 20:53 → PHED 20:53 → PHEDA 20:53 → PH3 02-27 01:17
PROVIDERS: ADMIT Family Medicine; ATTEND Family Medicine